=== PATIENT | male | born 1935 | race Caucasian/White ===

== ENCOUNTER → 2016-12-18 | Outpatient (CLI) | payer OTHER, BC ==
[~2016-12-18] VITALS: Ht 200.7 cm; Wt 132.4 kg
[~2016-12-18] MED LIST: ALEVE220 M1 PO; ASPIRIN EC325 M1 PO; CARVEDILOL25 MG PO; CYMBALTA60 MG PO; ENDUR-ACIN500 MG PO; FISH OIL 1,0001 EAC5 PO; MOBIC15 MG PO; MOBIC7.5 MG PO; NEXIUM40 MG PO; TRAMADOL 50 MG50 MG PO; VITAMIN D 5050000 I1 PO; VYTORIN 10-401 EACH PO; ZANAFLEX4 MG PO
--- NOTE | ~2016-12-18 | HPC ---
[facility] [address] [place] [address] PAIN MANAGEMENT CONSULTATION Name: MARYLINALICE J Room #: REG [facility] Chana#: [id number] Admission: 12/18/16 Attend Phys: Andrew Martin DO Discharge: Date of : 33 Report #: [id number] THIS REPORT FOR: //name// CC: Durga Martin HISTORY OF PRESENT ILLNESS: The patient is an 81-year-old gentleman long known to the pain clinic for lumbar radiculopathy status post decompressive laminectomy requiring high risk complex medication management. The patient actually takes a fairly nominal amount of medication, tramadol 50 mg 1 tablet 2 or 3 times a day, tizanidine similarly 2 or 3 a day. He has done well with occasional epidural injections, last injection at L2-L3 was back in January 2016. Returns to pain clinic today. Notes he has significant neurogenic claudication. 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 If he stands and leans on an object he has a little longer direction. He can walk for quite limited time, 2 or 3 minutes, with significant exacerbation of pain. He notes pain is in the bilateral legs, low back and rates it as 6-8 on a VAS. Thinks medications are helpful. PHYSICAL EXAMINATION: Shows an 81-year-old gentleman, BMI is 32.9 kilograms per meter squared. Alert and oriented to person, place and time, judged to be a reasonable historian. Vital signs are stable as noted in the EMR. Rises from chair using armrest, nominally antalgic gait, diffuse tenderness across the low back. Lumbar flexion is limited. Gait is modestly antalgic. We reviewed the fact that opiate medications are being used to provide analgesia adequate to support activities of daily living, not attempting to achieve a specific pain score on the 0-10 Visual Analog Scale. The current opiate medications are providing sufficient analgesia to allow the patient to participate in activities of daily living. The patient is not exhibiting any aberrant behavior suggestive of drug diversion. The patient is not having any adverse reactions to medications. The patient is not suffering from daytime somnolence or mental acuity changes. The patient is managing opiate-induced constipation with appropriate tsnf-mrw-xfepalm agents and dietary considerations. The patient was counseled on concern for caution with operating a motor vehicle while using opiate medications. A physical exam was performed and the patient's functional status was evaluated. All patients with back pain were advised against the bed rest greater than 4 days and were advised to return to normal activities. Pain score assessment was noted and the treatment plan was reviewed with the patient. All current medications, both prescribed and OTC were reviewed and reconciled on the electronic medical record. Tobacco screening was accomplished and smoking cessation was advised when indicated. BMI was noted and diet/exercise modification was recommended for all patients following outside normal [address] [address] PAIN MANAGEMENT CONSULTATION Name: MARYLINALICE Chris Room #: REG [facility] Chana#: [id number] Admission: 12/18/16 Attend Phys: Andrew Martin DO Discharge: Date of : 33 Report #: [id number] parameters. I reviewed with the patient today their responsibilities to safeguard prescription medications, reviewed their responsibility to utilize medications only as prescribed by the physician. They are to seek and receive pain medications only from 1 physician group ( [facility]). They are to use 1 pharmacy and keep the clinic informed if they change pharmacies. Their responsibilities include making followup visits in a timely fashion and to avoid abrupt discontinuation of medication usage. Their responsibilities further include bringing their medications (bottles from the pharmacy with residual pills) to the visit for possible confirmation of pill counts and the patient understands it is their responsibility to submit to random drug screens to ensure both that the medications prescribed are present, and that no other controlled substances are present. All prescriptions provided today were generated electronically. ASSESSMENT: Symptomatic lumbar radiculopathy status post decompressive laminectomy requiring complex medication management. RECOMMENDATIONS: I have taken the liberty of renewing tramadol 50 mg 1 tablet up to 4 times a day and tizanidine 4 mg 1 tablet up to 3 times a day, 120 and 90 tablets respectively with 3 refills. This typically should last the patient about 6 months. We talked about proceeding with an epidural injection today. Again, he gets 60 plus percent relief for many months with these injections, last injection was in January 2016, prior he had injection in March 2015. Today, we have elected to postpone interventional therapy, I will tentatively make an appointment to see the patient in 2 weeks, If resumption of medications do not significantly attenuate symptoms to the point that he can participate in activities of daily living little better, we will plan on repeating epidural injection at L2-L3. <ELECTRONICALLY SIGNED> By: Andrew Martin DO 12/21/16 0742 [id number] Andrew Martin DO /nt
[2016-12-18 11:12] VITALS: BP 120/85
== END | disposition home or self-care (01) ==
LOC: PAIN 02-13 07:46
DX: Z76.0 Encounter for issue of repeat prescription (principal); M54.16 Radiculopathy, lumbar region; G89.29 Other chronic pain; Z98.890 Other specified postprocedural states; Z79.891 Long term (current) use of opiate analgesic; Z79.82 Long term (current) use of aspirin

== ENCOUNTER → 2017-03-15 | Outpatient (CLI) | payer OTHER, BC ==
[~2017-03-15] VITALS: Ht 200.7 cm; Wt 131.4 kg
[~2017-03-15] MED LIST changes: +HYDROCODONE-AP1 EAC6 PO; +SIMVASTATIN40 MG PO
--- NOTE | ~2017-03-15 | HPC ---
[facility] [place] [address] PAIN MANAGEMENT CONSULTATION Name: ALICE COULTER [id number] Admission: 03/15/17 Attend Phys: Andrew Martin DO Discharge: Date of : 33 Report #: [id number] THIS REPORT FOR: //name// CC: Durga Martin HISTORY OF PRESENT ILLNESS: The patient is a very pleasant 81-year-old gentleman typically treated for lumbar radiculopathy status post decompressive laminectomy, axial back pain, requiring complex medication management. He was last seen in pain clinic on 12/18/2016. At that time, I continued the patient on simply tramadol and tizanidine. He had a prior lumbar epidural injection in January 2016 with greater than 60% improvement in his function. He was still doing reasonably well at last visit. He returns to pain clinic today. He has had acute exacerbation of axial back pain without antecedent trauma and overuse. He notes in early February pain began to recur with radicular pain down the back of both legs. Markedly antalgic gait. PHYSICAL EXAMINATION: Shows pleasant 81-year-old gentleman, 6 feet 6 inches, BMI is approximately 38 kilograms per meter squared. Markedly antalgic gait, stooped posture. Some diffuse tenderness across the low back. No discrete trigger points noted. Lower extremity strength is diminished. Positive straight leg raise, left greater than right. Well-healed midline surgical scar compatible with history. Neurogenic claudication by history. The patient notes tramadol and tizanidine have not afforded good efficacy in the past several weeks. He does not take any blood thinners. Medication list was reconciled today. Vital signs as noted on the EMR. We reviewed the fact that opiate medications are being used to provide analgesia adequate to support activities of daily living, not attempting to achieve a specific pain score on the 0-10 Visual Analog Scale. The current opiate medications are providing sufficient analgesia to allow the patient to participate in activities of daily living. The patient is not exhibiting any aberrant behavior suggestive of drug diversion. The patient is not having any adverse reactions to medications. The patient is not suffering from daytime somnolence or mental acuity changes. The patient is managing opiate-induced constipation with appropriate dytm-zib-ejuceen agents and dietary considerations. The patient was counseled on concern for caution with operating a motor vehicle while using opiate medications. A physical exam was performed and the patient's functional status was evaluated. All patients with back pain were advised against the bed rest greater than 4 days and were advised to return to normal activities. Pain score assessment was noted and the treatment plan was reviewed with the patient. All current [address] [address] PAIN MANAGEMENT CONSULTATION Name: ALICE COULTER Room #: REG [facility] Zayas#: [id number] Admission: 03/15/17 Attend Phys: Andrew Martin DO Discharge: Date of : 33 Report #: [id number] medications, both prescribed and OTC were reviewed and reconciled on the electronic medical record. Tobacco screening was accomplished and smoking cessation was advised when indicated. BMI was noted and diet/exercise modification was recommended for all patients following outside normal parameters. I reviewed with the patient today their responsibilities to safeguard prescription medications, reviewed their responsibility to utilize medications only as prescribed by the physician. They are to seek and receive pain medications only from 1 physician group ( [facility]). They are to use 1 pharmacy and keep the clinic informed if they change pharmacies. Their responsibilities include making followup visits in a timely fashion and to avoid abrupt discontinuation of medication usage. Their responsibilities further include bringing their medications (bottles from the pharmacy with residual pills) to the visit for possible confirmation of pill counts and the patient understands it is their responsibility to submit to random drug screens to ensure both that the medications prescribed are present, and that no other controlled substances are present. All prescriptions provided today were generated electronically. ASSESSMENT AND RECOMMENDATIONS: 1. Symptomatic lumbar radiculopathy requiring high risk complex medication management. Recommendation: We will add hydrocodone 5/325, dispense 45 tablets for severe pain. Continue tramadol 50 mg 1-2 tablets 3 times a day, dispense 120 tablets with 5 refills. Continue tizanidine 4 mg t.i.d. for spasm, dispense 90 tablets with 5 refills. 2. Acute exacerbation of lumbar radicular pain with bilateral L4-L5 radicular pain pattern in a patient status post extensive decompressive laminectomy at L4-L5 and L5-S1. Recommendation: Epidural injection under fluoroscopy today. PROCEDURE: Lumbar epidural injection under fluoroscopy. PROCEDURE NOTE: After both written and informed consent to include risk of spinal cord damage, increased pain, weakness and dural puncture, the patient was taken to the fluoroscopy suite, placed in the prone position. After sterile prep and drape, a skin wheal with lidocaine was raised. A 4-1/2 inch 20-gauge epidural Tuohy needle was inserted in the midline at L3-L4 with good loss to resistance. Negative aspiration for cerebrospinal fluid or blood was noted. Then 1 mL of Omnipaque under biplanar fluoroscopy showed good spread within the epidural space. This was followed with 80 mg of triamcinolone plus 1 mL of 1.5% preservative-free Xylocaine, 0.5 mL Xylocaine was then injected to flush the [facility] [address] [place] [address] PAIN MANAGEMENT CONSULTATION Name: ALICE COULTER Room #: REG [facility] Zayas#: [id number] Admission: 03/15/17 Attend Phys: Andrew Martin DO Discharge: Date of : 33 Report #: [id number] needle; it was removed. The patient was monitored for an appropriate period of time and discharged in good and stable condition. <ELECTRONICALLY SIGNED> By: Andrew Martin DO 03/17/17 0721 [id number] Andrew Martin DO /nt
[2017-03-15 14:27] VITALS: BP 134/76
== END | disposition home or self-care (01) ==
LOC: PAIN 01-01 09:01
DX: M54.16 Radiculopathy, lumbar region (principal); G89.29 Other chronic pain; Z98.890 Other specified postprocedural states; Z79.891 Long term (current) use of opiate analgesic; Z79.82 Long term (current) use of aspirin; Z79.899 Other long term (current) drug therapy